=== PATIENT | female | born 1950 | race Caucasian/White ===

== ENCOUNTER 2016-10-26 11:12 | Observation (INO) | payer MEDICARE ==
[~2016-10-26] VITALS: Ht 154.9 cm; Wt 79.7 kg
[2016-10-26] VITALS (14 sets, daily range): BP systolic 87–107; BP diastolic 50–90; PULSE 64–78; RESP 14–30; TEMP 98–98.7; O2SAT 91–100
[2016-10-26] MEDS ORDERED: HYDR-3535 PO (11:22)
[2016-10-26] MEDS ORDERED: SODIUM CHLOR 0.9% 1000 ML INJ 1,000 ML IV ONE ×2 (11:25)
[2016-10-26] MEDS ORDERED: SODIUM CHLORIDE 0.9% FLUSH 5 ML FLUSH IVF PRN (11:30)
[2016-10-26] MEDS ORDERED: FAMO20TA2 PO (11:44)
[2016-10-26] MEDS ORDERED: FURO20TA PO (11:44)
[2016-10-26] MEDS ORDERED: VALA1TAB PO (11:44)
[2016-10-26] MEDS ORDERED: ALLO100T PO (11:44)
[2016-10-26] MEDS ORDERED: GABA400C5 PO (11:44)
[2016-10-26] MEDS ORDERED: CLON1TAB PO (11:44)
[2016-10-26] MEDS ORDERED: BUSP15TA PO (11:44)
[2016-10-26] MEDS ORDERED: TIZA4TAB PO (11:44)
[2016-10-26] MEDS ORDERED: TRAZ100T4 PO (11:44)
[2016-10-26] MEDS ORDERED: CETI10 PO (11:44)
--- NOTE | 2016-10-26 11:51 | RADHPO ---
EXAM DATE/TIME: 10/26/2016 11:35 [facility] COMPARISON: No previous studies available for comparison. INDICATIONS : Unresponsive. Palpatations. Altered mental status. MEDICAL HISTORY : Arthritis. Diabetic. SURGICAL HISTORY : Gastric bypass. Cholecystectomy. Hysterectomy. Bilateral feet. Neurostimulator. ENCOUNTER: Initial ACUITY: 1 day PAIN SCORE: Non-responsive. LOCATION: chest FINDINGS: A single view of the chest demonstrates the lungs to be symmetrically aerated without evidence of mas s, infiltrate or effusion. There is some hypoaeration of the lung moore most likely from poor inspi ration. The cardiomediastinal contours are unremarkable. Osseous structures are intact. There are sp inal wires seen overlying the thoracic spine. CONCLUSION: No acute intrathoracic disease. Fred Cao MD on October 26, 2016 at 11:49 Board Certified Radiologist. This report was verified electronically.
--- NOTE | 2016-10-26 12:13 | RADHPO ---
EXAM DATE/TIME: 10/26/2016 11:38 [facility] COMPARISON: No previous studies available for comparison. INDICATIONS : Left knee pain. Trauma. Patient unresponsive. MEDICAL HISTORY : Arthritis. Diabetic. SURGICAL HISTORY : Gastric bypass. Cholecystectomy. Hysterectomy. Bilateral feet. Neurostimulator. ENCOUNTER: Initial ACUITY: 1 day PAIN SCORE: Non-responsive. LOCATION: Left knee FINDINGS: Four view examination of the left knee demonstrates no evidence of fracture or dislocation. Bony min eralization is normal. The articular surfaces are intact. The suprapatellar soft tissues have a nor mal configuration. CONCLUSION: Unremarkable examination of the left knee. Rosa Fontana MD on October 26, 2016 at 12:12 Board Certified Radiologist. This report was verified electronically.
--- NOTE | 2016-10-26 12:17 | RADHPO ---
EXAM DATE/TIME: 10/26/2016 11:50 [facility] COMPARISON: No previous studies available for comparison. INDICATIONS : Right knee pain. Trauma. Unresponsive. MEDICAL HISTORY : Seizures. Diabetic. SURGICAL HISTORY : Gastric bypass. Cholecystectomy. Hysterectomy. Bilateral feet. Neurostimulator. ENCOUNTER: Initial ACUITY: 1 day PAIN SCORE: Non-responsive. LOCATION: Right knee FINDINGS: Four view examination of the right knee demonstrates no evidence of fracture or dislocation. Bony mi neralization is normal. The articular surfaces are intact. The suprapatellar soft tissues have a no rmal configuration. CONCLUSION: Unremarkable examination of the right knee. Rosa Fontana MD on October 26, 2016 at 12:16 Board Certified Radiologist. This report was verified electronically.
[2016-10-26 12:39] LABS: BLOOD, URINE NEG (NEG); GLUCOSE,URINE NEG (NEG); KETONE, URINE NEG (NEG); NITRITE,URINE NEG (NEG)
[2016-10-26 12:40] LABS: AUTOMATED NEUTROPHIL # 12.5 TH/MM3 (1.8-7.7); BASOPHIL # 0.2 TH/MM3 (0-0.2); BASOPHIL % 1.5 % (0.0-2.0); EOSINOPHIL % 0.2 % (0.0-4.0); HEMATOCRIT 33.8 % (35.0-46.0); LYMPH % 13.3 % (9.0-44.0); MEAN CELL VOLUME 76.4 FL (80.0-100.0); MEAN CORPUSCULAR HEMOGLOBIN 24.6 PG (27.0-34.0); MEAN CORPUSCULAR HGB CONC 32.2 % (32.0-36.0); MONO % 4.2 % (0.0-8.0); NEUT % 80.8 % (16.0-70.0); PLATELET COUNT 220 TH/MM3 (150-450); RED BLOOD COUNT 4.42 MIL/MM3 (4.00-5.30); RED CELL DISTRIBUTION WIDTH 17.2 % (11.6-17.2); WHITE BLOOD COUNT 15.3 TH/MM3 (4.0-11.0)
[2016-10-26 12:43] LABS: HEMO FLAGS AUTO DIFF
--- NOTE | 2016-10-26 12:46 | RADHPO ---
EXAM DATE/TIME: 10/26/2016 12:37 [facility] COMPARISON: No previous studies available for comparison. INDICATIONS : Altered mental status. possible overdose. RADIATION DOSE: 52.90 CTDIvol (mGy) MEDICAL HISTORY : Diabetes. SURGICAL HISTORY : Hysterectomy. Gastric bypass. ENCOUNTER: Initial ACUITY: 1 day PAIN SCALE: Non-responsive LOCATION: cranial TECHNIQUE: Multiple contiguous axial images were obtained of the head. Using automated exposure control and adj ustment of the mA and/or kV according to patient size, radiation dose was kept as low as reasonably a chievable to obtain optimal diagnostic quality images. FINDINGS: CEREBRUM: The ventricles are normal for age. No evidence of midline shift, mass lesion, hemorrhage or acute in farction. No extra-axial fluid collections are seen. There is mild low attenuation identified within the periventricular white matter bilaterally. POSTERIOR FOSSA: The cerebellum and brainstem are intact. The 4th ventricle is midline. The cerebellopontine angle i s unremarkable. EXTRACRANIAL: The visualized portion of the orbits is intact. SKULL: The calvaria is intact. No evidence of skull fracture. CONCLUSION: The mild low attenuation seen within the periventricular white matter likely reflect sequelae of bag end sewer [place] small vessel ischemic changes. No evidence of acute abnormality.. Rosa Fontana MD on October 26, 2016 at 12:43 Board Certified Radiologist. This report was verified electronically.
[2016-10-26 12:47] LABS: COCAINE, URINE NEG (NEG); METHOD OF COLLECTION CATH; URINE COLOR YELLOW (YELLW/STRAW); WBC, URINE 0-2 /hpf (0-5)
[2016-10-26 12:48] LABS: AMPHETAMINE, URINE NEG (NEG); COMMENT (UR) CATH-CULT NOT IND; CULTURE IF INDICATED CATH CULTURE NOT IND; SQUAMOUS EPITHELIAL CELL URINE 0-5 /hpf (0-5)
[2016-10-26 12:49] LABS: CHLORIDE 103 MEQ/L (98-107); POTASSIUM 3.7 MEQ/L (3.5-5.1); SODIUM (NA) 141 MEQ/L (136-145)
[2016-10-26 12:52] LABS: APTT (PATIENT) 21.1 SEC (24.3-30.1); PROTHROMBIN TIME - PATIENT 11.2 SEC (9.8-11.6)
[2016-10-26] MEDS ORDERED: VANCOMYCIN INJ 1,000 MG in SODIUM CHLOR 0.9% 250 ML INJ 250 ML IV STA (12:52)
[2016-10-26] MEDS ORDERED: PIPERACIL-TAZO 4.5 GM PREMIX 100 ML IV STA (12:52)
[2016-10-26 12:53] LABS: ANION GAP 10 MEQ/L (5-15); BICARBONATE 28.5 MEQ/L (21.0-32.0); BLOOD UREA NITROGEN 14 MG/DL (7-18); MAGNESIUM 2.2 MG/DL (1.5-2.5)
[2016-10-26 12:55] LABS: ALT (GPT) 17 U/L (10-53)
[2016-10-26 12:56] LABS: AST (GOT) 23 U/L (15-37); GLOMERULAR FILTRATION RATE 74 ML/MIN (>89)
[2016-10-26 12:57] LABS: BARBITURATES, URINE NEG (NEG); TOTAL BILIRUBIN ADULT 0.5 MG/DL (0.2-1.0)
[2016-10-26 12:58] LABS: ALKALINE PHOSPHATASE 65 U/L (45-117); CREATINE KINASE 732 U/L (26-192)
[2016-10-26 13:05] LABS: SCAN/DIFF AUTO DIFF CONFIRMED
[2016-10-26 13:17] LABS: CKMB 8.4 NG/ML (0.5-3.6)
[2016-10-26] MEDS ORDERED: IOHEXOL 350 MG/ML 10 ML VIAL (for RAD DIAG) IV ONE (14:13)
[2016-10-26 14:19] LABS: ACETAMINOPHEN 2.7 MCG/ML (10.0-30.0)
--- NOTE | 2016-10-26 14:50 | RADHPO ---
EXAM DATE/TIME: 10/26/2016 14:08 [facility] COMPARISON: No previous studies available for comparison. INDICATIONS : Elevated white blood count. IV CONTRAST: 75 cc Omnipaque 350 (iohexol) IV ORAL CONTRAST: No oral contrast ingested. RADIATION DOSE: 14.77 CTDIvol (mGy) MEDICAL HISTORY : Diabetes. SURGICAL HISTORY : Hysterectomy. Gastric bypass. ENCOUNTER: Initial ACUITY: 1 day PAIN SCALE: Non-responsive LOCATION: abdomen/pelvis TECHNIQUE: Volumetric scanning of the abdomen and pelvis was performed. Using automated exposure control and adjustment of the mA and/or kV according to patient size, radiation dose was kept as low as reasonably achievable to obtain optimal diagnostic quality images. FINDINGS: LOWER LUNGS: There is dependent atelectasis identified bilaterally. The heart size appears normal without evidence of pericardial effusion. LIVER: Homogeneous density without lesion. There is no dilation of the biliary tree. There is mi ld periportal edema. The patient is status post prior cholecystectomy. SPLEEN: Normal size without lesion. PANCREAS: The pancreas is atrophic without evidence of mass. KIDNEYS: There is prominence of the right renal collecting system and right ureter to the level o f the pelvic inlet. Beyond this level the ureter cannot be clearly identified. There are no calcific densities identified within the pelvis and expected course of the right ureter. The left kidney is un remarkable. ADRENAL GLANDS: Within normal limits. VASCULAR: There is no aortic aneurysm. BOWEL/MESENTERY: The stomach, small bowel, and colon demonstrate no acute abnormality. There is no free intraperitoneal air or fluid. Postsurgical changes related to prior gastric bypass. ABDOMINAL WALL: Within normal limits. RETROPERITONEUM: There is no lymphadenopathy. BLADDER: The bladder is decompressed with a Berrios catheter. REPRODUCTIVE: The patient is status post prior hysterectomy. INGUINAL: There is no lymphadenopathy or hernia. MUSCULOSKELETAL: Within normal limits for patient age. CONCLUSION: 1. No evidence of inflammatory process within the abdomen or pelvis. The patient is status post prior gastric bypass without evidence of obstruction. 2. Prominence of the right renal collecting system and right ureter to the level of the pelvic inlet without visible obstructing stone. This may reflect a recently passed stone. 3. Mild periportal edema of unknown etiology. Rosa Fontana MD on October 26, 2016 at 14:43 Board Certified Radiologist. This report was verified electronically.
[2016-10-26] MEDS ORDERED: ACETAMINOPHEN 325 MG TAB PO PRN (16:45)
[2016-10-26] MEDS ORDERED: NALOXONE HCL 0.4 MG/ML AMP IV PRN (16:45)
[2016-10-26] MEDS ORDERED: ONDANSETRON HCL 4 MG/2 ML VIAL IVP PRN (16:45)
[2016-10-26] MEDS ORDERED: SODIUM CHLORIDE 0.9% FLUSH 5 ML FLUSH FLUSH PRN (16:45)
[2016-10-26] MEDS: SODIUM CHLOR 0.9% 1000 ML INJ 1,000 ML IV SCH (17:24)
--- NOTE | 2016-10-26 17:29 | PD ---
HPI Chief Complaint: OD/ Ingestion Time Seen by Provider: 11:25 Travel History International Travel<30 days: No Contact w/Intl Traveler<30days: No Traveled to known affect area: No History of Present Illness HPI 66 y/o female presents by ambulance for decreased mentation. Her initial GCS was 8 and she was given 0.4 mg of Narcan and started to slowly improve where she would mumble. She initially was hypotensive on scene with a systolic of 70. Patient here on initial arrival can only provide limited details and state her name. PFSH Past Medical History Arthritis: Yes Anxiety: Yes Diabetes: Yes (diet controlled) Patient Takes Glucophage: No Influenza Vaccination: Yes Past Surgical History Abdominal Surgery: Yes (gastric bypass 2005) Cholecystectomy: Yes Hysterectomy: Yes Neurologic Surgery: Yes (carpal tunnel, ulnar nurve transitions) Other Surgery: Yes (neurostimulator in back) Social History Alcohol Use: No Tobacco Use: No Substance Use: No Allergies-Medications (Allergen,Severity, Reaction): Coded Allergies: Percocet (Verified Allergy, Mild, itching, 10/26/16) Reported Meds & Prescriptions Reported Meds & Active Scripts Active Reported Tizanidine (Tizanidine HCl) 4 Mg Tab 8 Mg PO TID Furosemide 20 Mg Tab 20 Mg PO DAILY Famotidine 20 Mg Tab 20 Mg PO BID Allopurinol 100 Mg Tab 100 Mg PO DAILY Cetirizine (Cetirizine HCl) 10 Mg Tab 10 Mg PO DAILY Clonazepam 1 Mg Tab 1 Mg PO BID Trazodone (Trazodone HCl) 100 Mg Tab 100 Mg PO HS Buspirone (Buspirone HCl) 15 Mg Tab 15 Mg PO BID Valacyclovir (Valacyclovir HCl) 1 Gm Tab 1,000 Mg PO DAILY Gabapentin 400 Mg Cap 400 Cap PO 6 TIMES DAILY Lortab (Hydrocodone-Acetaminophen) 10-325 Mg Tab 1 Tab PO Q4H PRN Review of Systems Except as stated in HPI: all other systems reviewed are Neg Physical Exam Narrative GENERAL: Well-nourished, well-developed patient. SKIN: Warm and dry. HEAD: Normocephalic EYES: No injection or drainage. ENT: No nasal drainage noted. NECK: Supple, trachea midline. CARDIOVASCULAR: Regular rate and rhythm RESPIRATORY: Shallow respirations. No accessory muscle use. GASTROINTESTINAL: Abdomen soft, non-tender, nondistended. NEUROLOGICAL: Open eyes to voice, mumbles, moves extremities Data Data Last Documented VS Vital Signs Date Time Temp Pulse Resp B/P Pulse Ox O2 Delivery O2 Flow Rate FiO2 10/26/16 13:47 64 16 107/62 91 Room Air 10/26/16 11:35 98.0 Orders Electrocardiogram (10/26/16 11:25) Complete Blood Count With Diff (10/26/16 11:25) Comprehensive Metabolic Panel (10/26/16 11:25) Prothrombin Time / Inr (Pt) (10/26/16 11:25) Act Partial Throm Time (Ptt) (10/26/16 11:25) Lactic Acid Sepsis Protocol (10/26/16 11:25) Magnesium (Mg) (10/26/16 11:25) Phosphorus (Po4) (10/26/16 11:25) Lipase (10/26/16 11:25) Ckmb (Isoenzyme) Profile (10/26/16 11:25) Troponin I (10/26/16 11:25) Urinalysis - C+S If Indicated (10/26/16 11:25) Blood Culture (10/26/16 11:25) Chest, Single Ap (10/26/16 11:25) Blood Glucose (10/26/16 11:25) Ecg Monitoring (10/26/16 11:25) Iv Access Insert/Monitor (10/26/16 11:25) Oximetry (10/26/16 11:25) Ct Brain W/O Iv Contrast(Rout) (10/26/16 11:25) Sodium Chlor 0.9% 1000 Ml Inj (Ns 1000 M (10/26/16 11:25) Sodium Chlor 0.9% 1000 Ml Inj (Ns 1000 M (10/26/16 11:25) Alcohol (Ethanol) (10/26/16 11:25) Ammonia (10/26/16 11:25) Drug Screen, Random Urine (10/26/16 11:25) Salicylates (Aspirin) (10/26/16 11:25) Tylenol (Acetaminophen) (10/26/16 11:25) Sodium Chloride 0.9% Flush (Ns Flush) (10/26/16 11:30) Knee, Complete (4vws) (10/26/16 ) Knee, Complete (4vws) (10/26/16 ) Urinary Catheter Insert/Apply (10/26/16 11:40) Vancomycin Inj (Vancomycin Inj) (10/26/16 12:52) Piperacil-Tazo 4.5 Gm Premix (Zosyn 4.5 (10/26/16 12:52) CKMB (10/26/16 12:25) CKMB% (10/26/16 12:25) Ct Abd/Pel W Iv Contrast(Rout) (10/26/16 ) Admit Order (Ed Use Only) (10/26/16 13:57) Labs Laboratory Tests Test 10/26/16 12:25 White Blood Count 15.3 TH/MM3 Red Blood Count 4.42 MIL/MM3 Hemoglobin 10.9 GM/DL Hematocrit 33.8 % Mean Corpuscular Volume 76.4 FL Mean Corpuscular Hemoglobin 24.6 PG Mean Corpuscular Hemoglobin 32.2 % Concent Red Cell Distribution Width 17.2 % Platelet Count 220 TH/MM3 Mean Platelet Volume 9.2 FL Neutrophils (%) (Auto) 80.8 % Lymphocytes (%) (Auto) 13.3 % Monocytes (%) (Auto) 4.2 % Eosinophils (%) (Auto) 0.2 % Basophils (%) (Auto) 1.5 % Neutrophils # (Auto) 12.5 TH/MM3 Lymphocytes # (Auto) 2.0 TH/MM3 Monocytes # (Auto) 0.6 TH/MM3 Eosinophils # (Auto) 0.0 TH/MM3 Basophils # (Auto) 0.2 TH/MM3 CBC Comment AUTO DIFF Differential Comment AUTO DIFF CONFIRMED Prothrombin Time 11.2 SEC Prothromb Time International 1.0 RATIO Ratio Activated Partial 21.1 SEC Thromboplast Time Urine Collection Type CATH Urine Color YELLOW Urine Turbidity CLEAR Urine pH 6.0 Urine Specific [place] 1.010 Urine Protein NEG mg/dL Urine Glucose (UA) NEG mg/dL Urine Ketones NEG mg/dL Urine Occult Blood NEG Urine Nitrite NEG Urine Bilirubin NEG Urine Leukocyte Esterase NEG Urine WBC 0-2 /hpf Urine Squamous Epithelial 0-5 /hpf Cells Microscopic Urinalysis Comment CATH-CULT NOT IND Urine Collection Time 12:25 Sodium Level 141 MEQ/L Potassium Level 3.7 MEQ/L Chloride Level 103 MEQ/L Carbon Dioxide Level 28.5 MEQ/L Anion Gap 10 MEQ/L Blood Urea Nitrogen 14 MG/DL Creatinine 0.78 MG/DL Estimat Glomerular Filtration 74 ML/MIN Rate Random Glucose 123 MG/DL Lactic Acid Level 1.6 mmol/L Calcium Level 8.5 MG/DL Phosphorus Level 3.7 MG/DL Magnesium Level 2.2 MG/DL Total Bilirubin 0.5 MG/DL Aspartate Amino Transf 23 U/L (AST/SGOT) Alanine Aminotransferase 17 U/L (ALT/SGPT) Alkaline Phosphatase 65 U/L Ammonia 24 MCMOL/L Total Creatine Kinase 732 U/L Creatine Kinase MB 8.4 NG/ML Creatine Kinase MB % 1.1 % Troponin I LESS THAN 0.02 NG/ML Total Protein 7.3 GM/DL Albumin 3.3 GM/DL Lipase 63 U/L Salicylates Level LESS THAN 1.7 MG/DL Urine Opiates Screen POS Acetaminophen Level 2.7 MCG/ML Urine Barbiturates Screen NEG Urine Amphetamines Screen NEG Urine Benzodiazepines Screen NEG Urine Cocaine Screen NEG Urine Cannabinoids Screen NEG Ethyl Alcohol Level LESS THAN 3 MG/DL MDM Medical Decision Making Medical Screen Exam Complete: Yes Emergency Medical Condition: Yes Medical Record Reviewed: Yes (pmh confirmed) Interpretation(s) CBC & BMP Diagram 10/26/16 12:25 Last [address] 10/26/16 1125 Signed Impressions: Service Date/Time: Wednesday, October 26, 2016 12:37 - CONCLUSION: The mild low attenuation seen within the periventricular white matter likely reflect sequelae of chronic small vessel ischemic changes. No evidence of acute abnormality.. Rosa Fontana MD Chest X-Ray 10/26/16 1125 Signed Impressions: Service Date/Time: Wednesday, October 26, 2016 11:35 - CONCLUSION: No acute intrathoracic disease. Fred Cao MD Knee X-Ray 10/26/16 0000 Signed Impressions: Service Date/Time: Wednesday, October 26, 2016 11:50 - CONCLUSION: Unremarkable examination of the right knee. Rosa Fontana MD Knee X-Ray 10/26/16 0000 Signed Impressions: Service Date/Time: Wednesday, October 26, 2016 11:38 - CONCLUSION: Unremarkable examination of the left knee. Rosa Fontana MD Abdomen/Pelvis CT 10/26/16 0000 Signed Impressions: Service Date/Time: Wednesday, October 26, 2016 14:08 - CONCLUSION: 1. No evidence of inflammatory process within the abdomen or pelvis. The patient is status post prior gastric bypass without evidence of obstruction. 2. Prominence of the right renal collecting system and right ureter to the level of the pelvic inlet without visible obstructing stone. This may reflect a recently passed stone. 3. Mild periportal edema of unknown etiology. Rosa Fontana MD Differential Diagnosis Overdose, renal failure, sepsis, intracranial, hypoglycemia, hyponatremia.... Narrative Course Will check blood work, imaging and closely monitor with IV fluid hydration Will repeat IV fluid hydration given persistent hypotension and admit to the ICU given this and decreased GCS that's leads to intermittent hypoxia, CT scan abdomen added on and given broad-spectrum antibiotic coverage for possible infection source while awaiting additional testing CT abdomen without infection source and patient is now more awake and denies specific complaints. Her family had arrived and stated she had abrasions to her knees so x-rays were added on and those were also negative. No infection source she will be admitted for continued monitoring and IV fluid hydration given initial hypotension and altered mental status Critical Care Narrative Aggregate critical care time was 31 minutes. Time to perform other separately billable procedures was not included in the critical care time. My time did not include minutes spent treating any other patients simultaneously or on activities that did not directly contribute to the patient's treatment. The services I provided to this patient were to treat and/or prevent clinically significant deterioration that could result in: Respiratory failure, shock I provided critical care services requiring my management, as noted below: Chart data review, documentation time, medication orders and management, vital sign assessments/reviewing monitor data, ordering and reviewing lab tests, ordering and interpreting/reviewing x-rays and diagnostic studies, care of the patient and discussion of the patient with the admitting physicians. Physician Communication Physician Communication dr bowman initially agreed to admission but when he was available to see patient her blood pressure and mental status had significantly improved so she will be admitted to medical team dr read agrees to admit Diagnosis Primary Impression: Altered mental status Qualified Code: R41.82 - Altered mental status, unspecified altered mental status type Additional Impression: Hypotension Qualified Code: I95.9 - Hypotension, unspecified hypotension type Admitting Information Admitting Physician Requests: Admit Haylee Russ MD Oct 26, 2016 17:29
--- NOTE | 2016-10-26 18:57 | HHI.HP ---
[facility] Service [facility] Primary Care Physician Non-Staff Admission Diagnosis overdose, sepsis Diagnoses: Travel History International Travel<30 Days: No Contact w/Intl Traveler <30 Da: No Traveled to Known Affected Are: No History of Present Illness This is a pleasant 66-year-old female with past medical history of fibromyalgia, and chronic pain presents to the ER today after her found her unresponsive in their bedroom. The patient is now alert and oriented and able to tell me that she took tizanidine this morning which is unusual for her to take it. She also took this medication 2 days ago and it made her drowsy and she tripped and fell resulting in bruises on her extremities. Stay because of the pain she took the tizanidine. states he was unaware that she took at however she went to go lay down and he went to the bedroom and found her slumped over on the floor with her face down on the mattress. She was difficult to arouse and he called [facility]. In the emergency room she was hypotensive and received IV fluids. Initially she was admitted to the permit coordinator however intensivists came by to evaluate her and felt that she was appropriate for the floor therefore I was called for the admission. The patient states that she is prescribed for pain medicine by pain management physician. She denies taking more than the prescribed amount. She is now alert and oriented and denies any other symptoms recently specifically no fever , cough, shortness breath, dysuria, abdominal pain nausea or vomiting. Past Family Social History Allergies: Coded Allergies: Percocet (Verified Allergy, Mild, itching, 10/26/16) Physical Exam Vital Signs Vital Signs Date Time Temp Pulse Resp B/P Pulse Ox O2 Delivery O2 Flow Rate FiO2 10/26/16 17:33 67 18 107/90 94 Room Air 10/26/16 14:25 67 18 104/59 94 Room Air 10/26/16 13:47 64 16 107/62 91 Room Air 10/26/16 12:20 78 18 91/50 94 Room Air 10/26/16 11:35 98.0 71 14 87/60 94 10/26/16 11:29 94 Room Air Physical Exam GENERAL: Well-nourished, well-developed patient. SKIN: Warm and dry. HEAD: Normocephalic. EYES: No scleral icterus. No injection or drainage. NECK: Supple, trachea midline. No JVD or lymphadenopathy. CARDIOVASCULAR: Regular rate and rhythm without murmurs, gallops, or rubs. RESPIRATORY: Breath sounds equal bilaterally. No accessory muscle use. GASTROINTESTINAL: Abdomen soft, non-tender, nondistended. EXTREMITIES: No cyanosis, or edema. Scattered ecchymosis on lower extremities. NEUROLOGICAL: Awake, alert, and oriented x 3. Non-focal. Laboratory Laboratory Tests Test 10/26/16 12:25 White Blood Count 15.3 Red Blood Count 4.42 Hemoglobin 10.9 Hematocrit 33.8 Mean Corpuscular Volume 76.4 Mean Corpuscular Hemoglobin 24.6 Mean Corpuscular Hemoglobin 32.2 Concent Red Cell Distribution Width 17.2 Platelet Count 220 Mean Platelet Volume 9.2 Neutrophils (%) (Auto) 80.8 Lymphocytes (%) (Auto) 13.3 Monocytes (%) (Auto) 4.2 Eosinophils (%) (Auto) 0.2 Basophils (%) (Auto) 1.5 Neutrophils # (Auto) 12.5 Lymphocytes # (Auto) 2.0 Monocytes # (Auto) 0.6 Eosinophils # (Auto) 0.0 Basophils # (Auto) 0.2 CBC Comment AUTO DIFF Differential Comment AUTO DIFF CONFIRMED Prothrombin Time 11.2 Prothromb Time International 1.0 Ratio Activated Partial 21.1 Thromboplast Time Urine Collection Type CATH Urine Color YELLOW Urine Turbidity CLEAR Urine pH 6.0 Urine Specific [place] 1.010 Urine Protein NEG Urine Glucose (UA) NEG Urine Ketones NEG Urine Occult Blood NEG Urine Nitrite NEG Urine Bilirubin NEG Urine Leukocyte Esterase NEG Urine WBC 0-2 Urine Squamous Epithelial 0-5 Cells Microscopic Urinalysis Comment CATH-CULT NOT IND Urine Collection Time 12:25 Sodium Level 141 Potassium Level 3.7 Chloride Level 103 Carbon Dioxide Level 28.5 Anion Gap 10 Blood Urea Nitrogen 14 Creatinine 0.78 Estimat Glomerular Filtration 74 Rate Random Glucose 123 Lactic Acid Level 1.6 Calcium Level 8.5 Phosphorus Level 3.7 Magnesium Level 2.2 Total Bilirubin 0.5 Aspartate Amino Transf 23 (AST/SGOT) Alanine Aminotransferase 17 (ALT/SGPT) Alkaline Phosphatase 65 Ammonia 24 Total Creatine Kinase 732 Creatine Kinase MB 8.4 Creatine Kinase MB % 1.1 Troponin I LESS THAN 0.02 Total Protein 7.3 Albumin 3.3 Lipase 63 Salicylates Level LESS THAN 1.7 Urine Opiates Screen POS Acetaminophen Level 2.7 Urine Barbiturates Screen NEG Urine Amphetamines Screen NEG Urine Benzodiazepines Screen NEG Urine Cocaine Screen NEG Urine Cannabinoids Screen NEG Ethyl Alcohol Level LESS THAN 3 Date/Time Procedure Status Source Growth 10/26/16 12:25 Aerobic Blood Culture Received Blood Peripheral Pending 10/26/16 12:25 Anaerobic Blood Culture Received Blood Peripheral Pending Result Diagram: 10/26/16 1225 10/26/16 1225 Assessment and Plan Assessment and Plan -Overdose, polypharmacy. Now awake alert and oriented. Strongly recommend that the patient stop the tizanidine. We'll observe her overnight, continue IV fluids. Franca Jarquin MD Oct 26, 2016 18:57
[2016-10-26] MEDS ORDERED: busPIRone HCL 5 MG TAB PO SCH (21:00)
[2016-10-26] MEDS ORDERED: SODIUM CHLORIDE 0.9% FLUSH 5 ML FLUSH FLUSH SCH (21:00)
[2016-10-26] MEDS: FAMOTIDINE 20 MG TAB PO SCH (21:05)
[2016-10-26] MEDS: ACETAMINOPHEN/HYDROcodone 325 MG/10 MG TAB PO PRN (21:05)
[2016-10-27] VITALS (10 sets, daily range): BP systolic 103–133; BP diastolic 57–76; PULSE 64–88; RESP 11–25; TEMP 97.8–98.7; O2SAT 95–98
[2016-10-27] MEDS: SODIUM CHLOR 0.9% 1000 ML INJ 1,000 ML IV SCH (02:17)
[2016-10-27] MEDS: NYSTATIN 100,000 U/GM PWD 15 GM BTL TOPICAL SCH ×2 (02:17→11:51)
[2016-10-27] MEDS: ACETAMINOPHEN/HYDROcodone 325 MG/10 MG TAB PO PRN ×2 (05:15→11:51)
--- NOTE | 2016-10-27 08:25 | HHI.PR ---
Subjective Remarks Patient seen and examined today with Dr. Jarquin. Patient is completely alert and orientated. Patient is very eager to go home. Objective Vitals Vital Signs Date Time Temp Pulse Resp B/P Pulse Ox O2 Delivery O2 Flow Rate FiO2 10/27/16 08:00 97.8 64 12 133/68 95 10/27/16 06:00 88 10/27/16 05:00 88 10/27/16 04:00 75 10/27/16 04:00 98.7 75 25 103/61 98 10/27/16 04:00 98.7 77 25 103/61 98 10/27/16 02:00 66 10/27/16 01:00 76 10/27/16 00:00 98.3 67 11 116/57 10/27/16 00:00 67 10/27/16 00:00 98.3 67 11 116/57 10/26/16 23:00 66 10/26/16 22:05 18 10/26/16 22:00 77 10/26/16 21:00 73 10/26/16 20:44 67 10/26/16 20:31 98.7 68 30 98/69 100 10/26/16 20:15 79 20 105/66 97 10/26/16 20:00 66 10/26/16 19:06 Room Air 10/26/16 19:06 72 18 98/58 98 Room Air 10/26/16 17:33 67 18 107/90 94 Room Air 10/26/16 14:25 67 18 104/59 94 Room Air 10/26/16 13:47 64 16 107/62 91 Room Air 10/26/16 12:20 78 18 91/50 94 Room Air 10/26/16 11:35 98.0 71 14 87/60 94 10/26/16 11:29 94 Room Air I/O 10/26/16 10/26/16 10/26/16 10/27/16 10/27/16 10/27/16 07:00 15:00 23:00 07:00 15:00 23:00 Intake Total 2100 ml 482 ml 1017 ml Output Total 2075 ml 850 ml Balance 2100 ml -1593 ml 167 ml Intake Oral 360 ml 360 ml IV Total 2100 ml 122 ml 657 ml Output Urine Total 2075 ml 850 ml # Voids 0 # Bowel Movements 1 0 Result Diagram: 10/26/16 1225 10/26/16 1225 Objective Remarks GENERAL: Well-developed, well-nourished, in no acute distress. alert and orientated HEENT: Head is normocephalic without any lesions or masses noted. Facial features are symmetric. Eyes: Extraocular muscles are intact. Conjunctivae were clear. NECK: Supple without any masses. Trachea midline no deviation. No JVD, CARDIAC: Regular rhythm, regular rate. S1/S2 are heard. No murmurs gallops or rubs. LUNGS: Clear to auscultation bilaterally. No wheeze, rhonchi or rales. No use of accessory muscles on inspiration or expiration. ABDOMEN: Soft, nontender. Nondistended. Bowel sounds heard in all 4 quadrants. No organomegaly or masses. Negative rebound, negative guarding EXTREMITIES: No edema, pulses are equal bilaterally. No cyanosis or clubbing NEUROLOGY: Mood and affect appear appropriate. Cranial nerves II through XII grossly intact. Moving all extremities, speech is clear Urinary Catheter: No Vascular Central Line Catheter: No A/P Assessment and Plan Unintentional overuse medication, polypharmacy. Patient presented with altered mental status, confusion which has significantly improved, patient is completely alert and orientated at this time Strongly recommend that the patient stop the tizanidine. Chronic pain, fibromyalgia Home medications have been continued to include gabapentin, Lortab, Anxiety Home medications have been continued to include BuSpar DVT prevention Sequential compression devices Written by Apolinar Ceja PA-C, acting as scribe for Dr. Jarquin on 10/27/16 at 1015. The documentation accurately reflects the work and decisions performed face-to- face by Dr. Jarquin on 10/27/16 at 10:15. Discharge Planning Discharge home in stable condition Activity: Ad parag. Diet: Regular diet Medications per medication reconciliation, recommended discontinuation of Zanaflex Follow-up primary medical doctor in one week Apolinar Ceja Oct 27, 2016 08:25
--- NOTE | 2016-10-27 08:26 | HHI.DCPOC ---
Discharge Care Plan Diagnosis: (1) Altered mental status Goals to Promote Your Health * To prevent worsening of your condition and complications * To maintain your health at the optimal level Directions to Meet Your Goals Take your medications as prescribed Follow your dietary instruction Follow activity as directed Keep your appointments as scheduled Take your immunizations and boosters as scheduled If your symptoms worsen call your PCP, if no PCP go to Urgent Care Center or Emergency Room Smoking is Dangerous to Your Health. Avoid second hand smoke Call the 24-hour hour crisis hotline for domestic abuse at Apolinar Ceja Oct 27, 2016 08:26
[2016-10-27] MEDS ORDERED: GABAPENTIN 400 MG CAP PO SCH (09:00)
[2016-10-27] MEDS ORDERED: FUROSEMIDE 20 MG TAB PO SCH (09:00)
[2016-10-27] MEDS ORDERED: ALLOPURINOL 100 MG TAB PO SCH (09:00)
[2016-10-27] MEDS ORDERED: valACYclovir HCL 500 MG TAB PO SCH (09:00)
[2016-10-27] MEDS ORDERED: CETIRIZINE HCL 10 MG TAB PO SCH (09:00)
[2016-10-27] MEDS: FAMOTIDINE 20 MG TAB PO SCH (11:46)
--- NOTE | 2016-10-27 21:27 | EKG ---
Date Performed: 10/26/2016 Time Performed: 11:11:48 PTAGE: 66 years EKG: Sinus rhythm . Inferior and anterior T wave changes are nonspecific Borderline ECG NO PREVIOUS TRACING DOCTOR: Christiano Angeles Interpretating Date/Time 10/27/2016 21:13:24
== END 2016-10-27 13:05 | disposition home or self-care (01) ==
LOC: PHED 11:12 → PHEDA 13:58 → INTOOBSV 13:58 → PHEDH 17:57 → PHICU 20:03
PROVIDERS: ADMIT Family Medicine; ATTEND Family Medicine
DX: R41.82 Altered mental status, unspecified (principal); I95.9 Hypotension, unspecified; R40.2430 Glasgow coma scale score 3-8, unspecified time; E11.9 Type 2 diabetes mellitus without complications; Z79.899 Other long term (current) drug therapy; M79.7 Fibromyalgia; G89.29 Other chronic pain; T42.8X1A Poisoning by antiparkinsonism drugs and other central muscle-tone depressants, accidental (unintentional), initial encounter
CPT/HCPCS: 51702; 70450; 71010; 73564; 74177; 80053; 80307; 81001; 82140; 82550; 82552; 83605; 83690; 83735; 84100; 84484; 85025; 85610; 85730; 87040; 93005; 96361; 96374; 97162; 99291; G0378; G8987; G8988; J2543; J3370; J7030; J7050; Q9967; 80320; 80329; G0480; G0481

== ENCOUNTER 2016-12-03 14:34 | Emergency (ER) | payer MEDICARE ==
[~2016-12-03] VITALS: Ht 162.6 cm; Wt 73.0 kg
[~2016-12-03 14:34] MED LIST: ALLO100T PO; BUSP15TA PO; CETI10 PO; CLON1TAB PO; FAMO20TA2 PO; FURO20TA PO; GABA400C5 PO; HYDR-3535 PO; TRAZ100T4 PO; VALA1TAB PO
[2016-12-03 14:48] VITALS: BP 123/76; PULSE 64; RESP 16; TEMP 98.5; O2SAT 96
--- NOTE | 2016-12-03 15:50 | PD ---
HPI Chief Complaint: Musculoskeletal Complaint Time Seen by Provider: 15:50 Travel History International Travel<30 days: No Contact w/Intl Traveler<30days: No Traveled to known affect area: No History of Present Illness HPI 66-year-old female presents the emergency Department with several month history of right knee and right lateral ankle pain. Patient thinks she fell approximately 3 months ago, but continues to have chronic discomfort and swelling of the right ankle and right knee. Patient has not been taking anything for it. Patient states she did not seek medical attention when this originally happened. Her pain is 4/10. She denies any other significant complaints. She is allergic to Percocet adhesives. PFSH Past Medical History Arthritis: Yes Anxiety: Yes Diabetes: Yes (diet controlled) Patient Takes Glucophage: No Past Surgical History Abdominal Surgery: Yes (gastric bypass 2005) Cholecystectomy: Yes Hysterectomy: Yes Neurologic Surgery: Yes (carpal tunnel, ulnar nurve transitions) Other Surgery: Yes (neurostimulator in back) Social History Alcohol Use: No Tobacco Use: No Substance Use: No Allergies-Medications (Allergen,Severity, Reaction): Coded Allergies: Percocet (Verified Allergy, Mild, itching, 12/03/16) Adhesives (Verified Allergy, Unknown, 12/03/16) Reported Meds & Prescriptions Reported Meds & Active Scripts Active Reported Furosemide 20 Mg Tab 20 Mg PO DAILY Famotidine 20 Mg Tab 20 Mg PO BID Allopurinol 100 Mg Tab 100 Mg PO DAILY Cetirizine (Cetirizine HCl) 10 Mg Tab 10 Mg PO DAILY Clonazepam 1 Mg Tab 1 Mg PO BID Trazodone (Trazodone HCl) 100 Mg Tab 100 Mg PO HS Buspirone (Buspirone HCl) 15 Mg Tab 15 Mg PO BID Valacyclovir (Valacyclovir HCl) 1 Gm Tab 1,000 Mg PO DAILY Gabapentin 400 Mg Cap 400 Cap PO 6 TIMES DAILY Lortab (Hydrocodone-Acetaminophen) 10-325 Mg Tab 1 Tab PO Q4H PRN Review of Systems ROS Limitations: Poor Historian Except as stated in HPI: all other systems reviewed are Neg General / Constitutional: No: Fever Eyes: No: Visual changes HENT: No: Headaches Cardiovascular: No: Chest Pain or Discomfort Respiratory: No: Shortness of Breath Gastrointestinal: No: Abdominal Pain Genitourinary: No: Dysuria Musculoskeletal: Positive: Arthralgias, Pain Skin: No Rash Neurologic: No: Weakness Psychiatric: No: Depression Endocrine: No: Polydipsia Hematologic/Lymphatic: No: Easy Bruising Physical Exam Exam Limitations: Poor Historian Narrative GENERAL: Patient appears in no acute distress. SKIN: Warm and dry. Normal color. Normal turgor. No signs of trauma. No ecchymosis. HEAD: Atraumatic. Normocephalic. EYES: Pupils equal and round. No scleral icterus. No injection or drainage. ENT: No nasal bleeding or discharge. Mucous membranes pink and moist. Pharynx is normal. NECK: Trachea midline. No JVD. Supple nontender. CARDIOVASCULAR: Regular rate and rhythm. RESPIRATORY: No accessory muscle use. Clear to auscultation. Breath sounds equal bilaterally. MUSCULOSKELETAL: Extremities without clubbing, cyanosis, or edema. No obvious deformities. Patient has mild swelling over the right lateral ankle. Pain is tenderness over the right lateral malleolus. Knee has full range of motion without laxity. Patient complains of tenderness over the entire knee with palpation.. Effusion is noted. NEUROLOGICAL: Awake and alert. No obvious cranial nerve deficits. Motor grossly within normal limits. Five out of 5 muscle strength in the arms and legs. Normal speech. PSYCHIATRIC: Appropriate mood and affect; insight and judgment normal. Data Data Last Documented VS Vital Signs Date Time Temp Pulse Resp B/P Pulse Ox O2 Delivery O2 Flow Rate FiO2 12/03/16 14:48 98.5 64 16 123/76 96 Orders Ankle, Complete ([id number]) (12/03/16 15:53) Knee, Complete (4vws) (12/03/16 15:53) [facility] Medical Decision Making Medical Screen Exam Complete: Yes Emergency Medical Condition: Yes Differential Diagnosis Right lateral ankle pain and swelling. Right knee pain. Arthritis. Narrative Course Patient is medically stable at time of exam. X-rays of the right ankle and right knee are ordered. X-ray shows soft tissue swelling of the right ankle without acute fracture for radiologist. Right knee x-rays are normal per radiologist. Patient was treated with ibuprofen 600 mg 4 times a day when necessary #40. Patient is given acetaminophen 325 mg tabs 2 every 6 hours when necessary #60. Patient should follow with her primary care physician as needed. Diagnosis Primary Impression: Chronic pain of right knee Additional Impression: Pain and swelling of right ankle Referrals: Primary Care Physician Patient Instructions: General Instructions Additional Instructions: X-rays of the right ankle and right knee are ordered. X-ray shows soft tissue swelling of the right ankle without acute fracture for radiologist. Right knee x-rays are normal per radiologist. Patient was treated with ibuprofen 600 mg 4 times a day when necessary #40. Patient is given acetaminophen 325 mg tabs 2 every 6 hours when necessary #60. Patient should follow with her primary care physician as needed. Med/Other Pt SpecificInfo: Prescription(s) given Scripts Ibuprofen 600 Mg [id number] Mg PO Q6H PRN (Pain/Inflammation) #40 TAB Prov:Mirela Alexander MD 12/03/16 Acetaminophen 325 Mg [id number] Mg PO Q6HR PRN (PAIN SCALE 4 TO 10) #40 TAB Prov:Mirela Alexander MD 12/03/16 Disposition: 01 DISCHARGE HOME Condition: Stable John Pineda Dec 03, 2016 15:50
--- NOTE | 2016-12-03 16:27 | RADHPO ---
EXAM DATE/TIME: 12/03/2016 16:11 [facility] COMPARISON: No previous studies available for comparison. INDICATIONS : Right ankle pain from fall. MEDICAL HISTORY : None. SURGICAL HISTORY : None. ENCOUNTER: Initial ACUITY: 2 weeks PAIN SCORE: 5/10 LOCATION: anterior ankle. FINDINGS: Three view exam was performed of the right ankle. Soft tissue swelling. Old avulsion fracture medial malleolus. Small plantar calcaneal spur. No radiopaque foreign bodies are seen. Bony mineralization is normal. CONCLUSION: Soft tissue swelling without acute fracture. Old avulsion fracture medial malleolus. Benjie Ayala MD on December 03, 2016 at 16:25 Board Certified Radiologist. This report was verified electronically.
--- NOTE | 2016-12-03 16:28 | RADHPO ---
EXAM DATE/TIME: 12/03/2016 16:08 [facility] COMPARISON: No previous studies available for comparison. INDICATIONS : Right knee pain from fall. MEDICAL HISTORY : SURGICAL HISTORY : None. ENCOUNTER: Initial ACUITY: 2 weeks PAIN SCORE: 6/10 LOCATION: anterior knee. FINDINGS: Four view examination of the right knee demonstrates no evidence of fracture or dislocation. Bony mi neralization is normal. Minimal osteoarthritis. The suprapatellar soft tissues have a normal configu ration. CONCLUSION: No acute fracture. Benjie Ayala MD on December 03, 2016 at 16:26 Board Certified Radiologist. This report was verified electronically.
[2016-12-03] MEDS ORDERED: IBUP-232 PO (16:52)
[2016-12-03] MEDS ORDERED: ACET325T PO (16:52)
== END 2016-12-03 17:11 | disposition home or self-care (01) ==
LOC: PHEFT 14:34
DX: M25.561 Pain in right knee (principal); M25.571 Pain in right ankle and joints of right foot; G89.29 Other chronic pain
CPT/HCPCS: 73564; 73610; 99283